=== PATIENT | female | born 1985 | race Two or more races ===

== ENCOUNTER → 2017-12-03 | Emergency (ER) | payer OTHER ==
[~2017-12-03] VITALS: Ht 162.6 cm; Wt 61.2 kg
[~2017-12-03] MED LIST: ZANTAC300 MG PO; ZOFRAN4 MG PO
== END | disposition home or self-care (01) ==
LOC: ER 19:42
DX: O26.891 Other specified pregnancy related conditions, first trimester (principal); K29.70 Gastritis, unspecified, without bleeding; Z34.81 Encounter for supervision of other normal pregnancy, first trimester

== ENCOUNTER 2017-12-12 21:54 | Emergency (ER) | payer OTHER ==
[~2017-12-12] VITALS: Ht 162.6 cm; Wt 59.4 kg
== END 2017-12-13 04:54 ==
LOC: ER 21:54
DX: O21.0 Mild hyperemesis gravidarum (principal); Z34.81 Encounter for supervision of other normal pregnancy, first trimester

== ENCOUNTER 2018-06-19 19:51 | Inpatient (IN) | payer OTHER ==
[~2018-06-19] VITALS: Ht 162.6 cm; Wt 69.4 kg
[2018-06-19] MEDS ORDERED: OBSTETRIX EC C1 EACH PO (21:40)
== END 2018-06-22 22:45 | DRG 833 ==
LOC: OBS/DEL 19:51 → LDR 06-20 21:50 → OBS/DEL 06-20 21:50 → LDR 06-22 22:45
PROC: BY4FZZZ Ultrasonography of Third Trimester, Single Fetus (ICD-10-PCS; principal; 2018-06-20)
PROC: 4A1HXCZ Monitoring of Products of Conception, Cardiac Rate, External Approach (ICD-10-PCS; 2018-06-20)
DX: O47.1 False labor at or after 37 completed weeks of gestation (principal); O76 Abnormality in fetal heart rate and rhythm complicating labor and delivery; Z34.83 Encounter for supervision of other normal pregnancy, third trimester

== ENCOUNTER 2018-06-26 17:50 | Inpatient (IN) | payer OTHER ==
[~2018-06-26] VITALS: Ht 162.6 cm; Wt 70.8 kg
[~2018-06-26 17:50] MED LIST changes: +OBSTETRIX EC C1 EACH PO
== END 2018-06-30 15:50 | disposition home or self-care (01) | DRG 785 ==
LOC: OBS/DEL 17:50 → LDR 06-27 01:01 → OB/GYN 06-27 01:01
PROVIDERS: Obstetrics & Gynecology
PROC: 0UL70ZZ Occlusion of Bilateral Fallopian Tubes, Open Approach (ICD-10-PCS; 2018-06-27)
PROC: 4A1HXCZ Monitoring of Products of Conception, Cardiac Rate, External Approach (ICD-10-PCS; 2018-06-27)
PROC: 10D00Z1 Extraction of Products of Conception, Low, Open Approach (ICD-10-PCS; principal; 2018-06-27 07:00)
DX: O76 Abnormality in fetal heart rate and rhythm complicating labor and delivery (principal); Z3A.38 38 weeks gestation of pregnancy; Z37.0 Single live birth; Z30.2 Encounter for sterilization